=== PATIENT | male | born 1995 | race Caucasian/White ===

== ENCOUNTER 2017-12-31 11:08 | Emergency (ER) | payer BC ==
[~2017-12-31] VITALS: Ht 177.8 cm; Wt 75.0 kg
[~2017-12-31 11:08] MED LIST: AMOXICILLIN 8751 TAB PO; PROTONIX20 MG PO; ZOFRAN ODT4 MG PO
[2017-12-31 11:12] VITALS: TEMP 98.2
[2017-12-31 12:57] LABS: BASO % 0.3 % (0.0-2.0); EOS % 0.1 % (0-4.0); GRAN # 6.8 (1.4-6.5); GRAN % 72.5 % (42.2-75.2); HEMATOCRIT 45.8 % (42.0-52.0); LYMPH # 1.7 (1.2-3.4); MEAN CELL VOLUME 95 fl (80.0-100.0); MEAN CORPUSCULAR HEMOGLOBIN 33 pg (27.0-31.0); MEAN CORPUSCULAR HGB CONC 35 g/dl (33.0-37.0); MEAN PLATELET VOLUME 11.6 fl (7.4-10.4); MONO # 0.8 (0.1-0.6); MONO % 8.8 % (1.7-9.3); PLATELET COUNT 166 K/mm3 (130-400); RED BLOOD COUNT 4.83 M/mm3 (4.20-5.60); REDCELL DISTRIBUTION WIDTH-CV 12.6 % (11.5-14.5)
[2017-12-31 13:07] LABS: ALBUMIN 4.9 gm/dL (3.5-5.0); BILIRUBIN,TOTAL 1.1 mg/dL (0.0-1.0); CALCIUM 9.7 mg/dL (8.4-10.2); CREATININE, serum 0.96 mg/dL (0.66-1.25); POTASSIUM 4.1 mmol/L (3.4-5.0); TOTAL PROTEIN 7.9 gm/dL (6.4-8.2)
[2017-12-31 15:11] VITALS: BP 135/98; PULSE 55
== END 2017-12-31 15:12 | disposition home or self-care (01) ==
LOC: COL.ER 11:08
PROVIDERS: Emergency Medicine
DX: R55 Syncope and collapse (principal); R51 Headache; R11.0 Nausea

== ENCOUNTER → 2020-05-20 | Outpatient (CLI) | payer BC | LOC: ZCOL.LAB 17:22 | DX: R06.02 Shortness of breath (principal); R05 Cough; R51 Headache; R53.83 Other fatigue; Z20.828 Contact with and (suspected) exposure to other viral communicable diseases ==